=== PATIENT | female | born 1940 | race Hispanic/Latino ===

== ENCOUNTER 2018-04-02 09:47 | Emergency (ER) | payer MEDICARE, OTHER ==
[2018-04-02 10:52] VITALS: TEMP 98.3
--- NOTE | 2018-04-02 11:39 | ED PDOC ---
Arrival/HPI - General Chief Complaint: Back Pain Time Seen by Provider: 04/02/18 11:06 Historian: Patient - History of Present Illness Narrative History of Present Illness (Text): 04/02/18 12:52 77yo female with Past medical history of spinal stenosis, hypertension who present to Emergency department with complaint of mid back /thoracic pain. States the pain started this morning and she became "shaky". Notes that that the pain is currently resolved. She report previous history of the back pain, but it was worse today. She denies cough, fever, chest pain, shortness of ansley diaphoresis, ripping/tearing upper back pain, abdominal pain. 04/02/18 12:54 Past Medical History - Infectious Disease Hx of Infectious Diseases: None - Reproductive Menopause: Yes - Cardiac Hx Cardiac Disorders: No - Pulmonary Hx Chronic Obstructive Pulmonary Disease (COPD): Yes - Musculoskeletal/Rheumatological Hx Spinal Stenosis: Yes - Gastrointestinal Hx Gastrointestinal Disorders: No - Psychiatric Hx Substance Use: No - Surgical History Hx Orthopedic Surgery: Yes - Anesthesia Hx Anesthesia: No Family/Social History - Physician Review Nursing Documentation Reviewed: Yes Family/Social History: Unknown Family HX Smoking Status: Unknown If Ever Smoked Hx Alcohol Use: No Hx Substance Use: No Allergies/Home Meds Allergies/Adverse Reactions: Allergies No Known Allergies Allergy (Verified 04/02/18 10:52) Review of Systems - Physician Review All systems were reviewed & negative as marked: Yes - Review of Systems Constitutional: Normal Eyes: Normal ENT: Normal Respiratory: Normal Cardiovascular: Normal Gastrointestinal: Normal Genitourinary Female: Normal Musculoskeletal: Back Pain Skin: Normal Neurological: Normal Endocrine: Normal Hemo/Lymphatic: Normal Psychiatric: Normal Physical Exam Vital Signs Reviewed: Yes Vital Signs Temp Pulse Resp BP Pulse Ox 04/02/18 13:05 76 18 130/72 98 04/02/18 12:19 83 18 130/72 95 04/02/18 10:04 98.3 F 88 17 96/45 L 93 L Temperature: Afebrile Blood Pressure: Normal Pulse: Regular Respiratory Rate: Normal Appearance: Positive for: Well-Appearing, Non-Toxic, Comfortable Pain Distress: None Mental Status: Positive for: Alert and Oriented X 3 - Systems Exam Head: Present: Atraumatic, Normocephalic Pupils: Present: PERRL Extroacular Muscles: Present: EOMI Conjunctiva: Present: Normal Mouth: Present: Moist Mucous Membranes Neck: Present: Normal Range of Motion Respiratory/Chest: Present: Clear to Auscultation, Good Air Exchange. No: Respiratory Distress, Accessory Muscle Use Cardiovascular: Present: Regular Rate and Rhythm, Normal S1, S2. No: Murmurs Abdomen: No: Tenderness, Distention, Peritoneal Signs Back: Present: Normal Inspection. No: Midline Tenderness, Paraspinal Tenderness , Pain with Leg Raise Upper Extremity: Present: Normal Inspection. No: Cyanosis, Edema Lower Extremity: Present: Normal Inspection. No: Edema Neurological: Present: GCS=15, CN II-XII Intact, Speech Normal Skin: Present: Warm, Dry, Normal Color. No: Rashes Psychiatric: Present: Alert, Oriented x 3, Normal Insight, Normal Concentration Medical Decision Making ED Course and Treatment: 04/02/18 20:13 Pt in Emergency department for stated history. she notes that her pain have resolved in Emergency department without medication. she declined pain medication in Emergency department. she was ambulatory and neurologically intact. Her PE was benign. Thoracic spine and Chest xray was both negative. Result was DW the pt and she was referred to her PMD. - RAD Interpretation Radiology Orders: 04/02/18 11:06 DORSAL (THORACIC) SPINE [RAD] Stat 04/02/18 11:07 CHEST TWO VIEWS (PA/LAT) [RAD] Stat Disposition/Present on Arrival - Present on Arrival Any Indicators Present on Arrival: No History of DVT/PE: No History of Uncontrolled Diabetes: No Urinary Catheter: No History of Decub. Ulcer: No History Surgical Site Infection Following: None - Disposition Have Diagnosis and Disposition been Completed?: Yes Diagnosis: Back pain Disposition: HOME/ ROUTINE Disposition Time: 12:55 Patient Plan: Discharge Condition: STABLE Discharge Instructions (ExitCare): Upper Back Pain Additional Instructions: Follow up with your doctor Return to Emergency department for any new or worsening symptoms Referrals: Tom Sandoval MD [Primary Care Provider] - Follow up with primary Forms: [employer] ([employer])
[2018-04-02 12:20] VITALS: BP 130/72; RESP 18
--- NOTE | 2018-04-02 12:36 | RAD ---
HISTORY: back pain COMPARISON: 10/15/2016 TECHNIQUE: Chest PA and lateral FINDINGS: LUNGS: No active pulmonary disease. PLEURA: No significant pleural effusion identified. No pneumothorax apparent. CARDIOVASCULAR: Normal. OSSEOUS STRUCTURES: No significant abnormalities. VISUALIZED UPPER ABDOMEN: Normal. OTHER FINDINGS: None. IMPRESSION: No active disease.
--- NOTE | 2018-04-02 12:37 | RAD ---
HISTORY: back pain COMPARISON: No prior. FINDINGS: BONES: Alignment maintained. No fracture. DISC SPACES: Normal. SOFT TISSUES: Normal. OTHER FINDINGS: None. IMPRESSION: Normal radiographs of the thoracic spine.
[2018-04-02 13:06] VITALS: PULSE 76; O2SAT 98
== END 2018-04-02 13:05 | disposition home or self-care (01) ==
LOC: ED 09:47
DX: M54.6 Pain in thoracic spine (principal); I10 Essential (primary) hypertension